=== PATIENT | female | born 1980 | race African-American/Black ===

== ENCOUNTER → 2020-08-24 | Outpatient (CLI) | payer MEDICAID | END | disposition home or self-care (01) | LOC: LAB 13:57 | PROVIDERS: ATTEND Obstetrics & Gynecology | DX: Z01.812 Encounter for preprocedural laboratory examination (principal); Z20.828 Contact with and (suspected) exposure to other viral communicable diseases | CPT/HCPCS: C9803; U0003 ==

== ENCOUNTER → 2020-08-27 | Day surgery (SDC) | payer MEDICAID ==
[~2020-08-27] VITALS: Ht 170.2 cm; Wt 88.5 kg
[~2020-08-27] MED LIST: LACTATED RINGERS 1,000 ML IV SCH; ONDA4TAB5 PO; OXYC-105 PO
[2020-08-27 10:42] LABS: CLARITY URINE CLEAR (CLEAR); COLOR URINE YELLOW (YELLOW); KETONES URINE 2+ (NEGATIVE); LEUKOCYTE ESTERASE URINE NEGATIVE (NEGATIVE); NITRITE URINE NEGATIVE (NEGATIVE); OCCULT BLOOD URINE TRACE (NEGATIVE); PROTEIN URINE NEGATIVE (NEGATIVE); SPECIFIC GRAVITY URINE 1.047 (1.005-1.030); UROBILINOGEN URINE 0.2 E.U./dL (0.2-1.0)
[2020-08-27 10:48] LABS: UCG SCREEN NEGATIVE
[2020-08-27 11:06] LABS: BASOPHILS % 1.4 % (0.0-2.0); EOSINOPHILS % 0.6 % (0.0-5.0); HEMATOCRIT. 37.6 % (36.0-48.0); HEMOGLOBIN. 12.6 g/dL (12.0-16.0); LYMPHOCYTES % 18.5 % (20.0-50.0); MEAN CORPUSCULAR HEMOGLOBIN 26.7 pg (28.0-32.0); MEAN CORPUSCULAR VOLUME 80.1 fL (81.0-99.0); MEAN PLATELET VOLUME 8.7 fl (7.4-10.4); MONOCYTES % 7.4 % (2.0-8.0); NEUTROPHILS % 72.1 % (40.0-76.0); PLATELET 418 x1000/uL (130-400); RED CELL DISTRIBUTION WIDTH 14.3 % (11.6-14.6)
[2020-08-27 11:11] LABS: CHLORIDE 99 mEq/L (98-107)
[2020-08-27 11:15] LABS: PARTIAL THROMBOPLASTIN TIME 27.4 sec (23.4-31.0); PROTHROMBIN TIME 10.6 sec (9.6-11.0)
== END | disposition home or self-care (01) ==
LOC: OR 09:51
PROVIDERS: ATTEND Obstetrics & Gynecology
DX: N92.6 Irregular menstruation, unspecified (principal); Z53.8 Procedure and treatment not carried out for other reasons; Z88.0 Allergy status to penicillin; Z91.013 Allergy to seafood; Z79.899 Other long term (current) drug therapy; Z98.890 Other specified postprocedural states
CPT/HCPCS: 36415; 80048; 81003; 81025; 82962; 85025; 86850; 86900

== ENCOUNTER → 2020-09-11 | Outpatient (CLI) | payer MEDICAID ==
[~2020-09-11] MED LIST changes: +DIPH25CA83 PO; +GLIP10TA10 PO; +INSU100I24 SQ; -LACTATED RINGERS 1,000 ML IV SCH; +MEDR10TA PO; +METF100092 PO
== END | disposition home or self-care (01) ==
LOC: LAB 12:51
PROVIDERS: ATTEND Obstetrics & Gynecology
DX: Z01.812 Encounter for preprocedural laboratory examination (principal); Z20.828 Contact with and (suspected) exposure to other viral communicable diseases
CPT/HCPCS: C9803; U0003

== ENCOUNTER 2020-09-14 06:03 | Day surgery (SDC) | payer MEDICAID ==
[~2020-09-14] VITALS: Ht 170.2 cm; Wt 88.5 kg
[2020-09-14 06:57] LABS: UCG SCREEN NEGATIVE
[2020-09-14] MEDS ORDERED: BUPIVACAINE HCL/PF 0.5% (5MG/ML) 10ML ONE (07:05)
[2020-09-14] MEDS ORDERED: SKIN ADHESIVE 0.7 GM EA TOP ONE (07:05)
[2020-09-14] MEDS ORDERED: VASOPRESSIN 20 UNIT/ML 1ML ONE (07:05)
[2020-09-14] MEDS ORDERED: CEFAZOLIN SODIUM 1000MG/VIAL ONE (08:21)
[2020-09-14] MEDS ORDERED: GLYCOPYRROLATE 0.2 MG/ML 2ML VIAL ONE (08:21)
[2020-09-14] MEDS ORDERED: SODIUM CHLORIDE 0.9% 10ML VIAL ONE (08:21)
[2020-09-14] MEDS ORDERED: NEOSTIGMINE METHYLSULFATE 1MG/ML 10 ML VIAL ONE (08:21)
[2020-09-14] MEDS ORDERED: ROCURONIUM BROMIDE 10MG/ML VIAL 5ML IV ONE (08:21)
[2020-09-14] MEDS ORDERED: PROPOFOL 200MG/20ML VIAL IV ONE (08:21)
[2020-09-14] MEDS ORDERED: FENTANYL CITRATE/PF 50MCG/ML 2ML VIAL ONE ×2 (08:21→08:54)
[2020-09-14] MEDS ORDERED: MIDAZOLAM HCL 2 MG/2 ML VIAL ONE (08:21)
[2020-09-14] MEDS ORDERED: SUCCINYLCHOLINE CHLORIDE 200MG/10ML IV ONE (08:22)
[2020-09-14] MEDS ORDERED: ONDANSETRON HCL 4MG/2ML INJ ONE (08:22)
[2020-09-14] MEDS ORDERED: DEXAMETHASONE 4MG/ML 1ML VIAL ONE (08:22)
[2020-09-14] MEDS ORDERED: METOCLOPRAMIDE HCL 10MG/2ML VIAL ONE (08:22)
[2020-09-14] MEDS ORDERED: HYDROMORPHONE HCL/PF 2MG/ML CPJ IV PRN (10:45)
[2020-09-14] MEDS ORDERED: ONDANSETRON HCL 4MG/2ML INJ IV PRN (10:45)
[2020-09-14] MEDS ORDERED: MEPERIDINE HCL/PF 25MG/ML CPJ IV PRN ×2 (10:45)
[2020-09-14] MEDS ORDERED: MORPHINE SULFATE 2 MG/ML CPJ (NOT FOR IM USE) IV PRN (10:45)
[2020-09-14] MEDS ORDERED: SODIUM CHLORIDE 0.9% 1,000 ML IV ONE (10:45)
== END 2020-09-14 13:25 | disposition home or self-care (01) ==
LOC: OR 06:03
PROVIDERS: ATTEND Obstetrics & Gynecology
DX: R10.2 Pelvic and perineal pain (principal); N95.0 Postmenopausal bleeding; N73.6 Female pelvic peritoneal adhesions (postinfective); N83.201 Unspecified ovarian cyst, right side; G89.29 Other chronic pain; E11.9 Type 2 diabetes mellitus without complications; F41.9 Anxiety disorder, unspecified; Z79.899 Other long term (current) drug therapy; Z79.84 Long term (current) use of oral hypoglycemic drugs; Z79.82 Long term (current) use of aspirin; Z98.890 Other specified postprocedural states; Z88.0 Allergy status to penicillin; Z91.013 Allergy to seafood
CPT/HCPCS: 71045; 81025; 82962; J0330; J0690; J1100; J2250; J2405; J2704; J2710; J2765; J3010; J3490

== ENCOUNTER 2021-05-11 11:38 | Inpatient (IN) | payer MEDICAID, OTHER ==
[~2021-05-11] VITALS: Ht 170.2 cm; Wt 93.4 kg
[2021-05-11] MEDS ORDERED: ONDANSETRON HCL 4MG/2ML INJ IV STA (11:56)
[2021-05-11] MEDS ORDERED: MORPHINE SULFATE 4 MG/ML CPJ (NOT FOR IM USE) IV STA (11:56)
[2021-05-11] MEDS ORDERED: SODIUM CHLORIDE 0.9% 1,000 ML IV ONE (12:00)
[2021-05-11 12:24] LABS: CHLORIDE 104 mEq/L (98-107)
[2021-05-11 12:48] LABS: BASOPHILS % 0.3 % (0.0-2.0); EOSINOPHILS % 0.1 % (0.0-5.0); HEMATOCRIT. 36.8 % (36.0-48.0); HEMOGLOBIN. 12.4 g/dL (12.0-16.0); MEAN CORPUSCULAR HEMOGLOBIN 26.3 pg (28.0-32.0); MEAN CORPUSCULAR VOLUME 78.1 fL (81.0-99.0); MEAN PLATELET VOLUME 7.5 fl (7.4-10.4); MONOCYTES % 4.4 % (2.0-8.0); NEUTROPHILS % 85.2 % (40.0-76.0); PLATELET 396 x1000/uL (130-400); RED BLOOD CELL COUNT 4.72 mill/uL (4.2-5.4); RED CELL DISTRIBUTION WIDTH 14.5 % (11.6-14.6)
[2021-05-11 13:20] LABS: HCG SCREEN NEGATIVE
[2021-05-11] MEDS ORDERED: ONDANSETRON HCL 4MG/2ML INJ IV ONE (13:45)
[2021-05-11 13:57] LABS: CLARITY URINE CLEAR (CLEAR); COLOR URINE YELLOW (YELLOW); KETONES URINE 4+ (NEGATIVE); LEUKOCYTE ESTERASE URINE NEGATIVE (NEGATIVE); NITRITE URINE NEGATIVE (NEGATIVE); OCCULT BLOOD URINE NEGATIVE (NEGATIVE); PH URINE 7.5 (4.5-8.0); PROTEIN URINE NEGATIVE (NEGATIVE); UROBILINOGEN URINE 0.2 E.U./dL (0.2-1.0)
[2021-05-11] MEDS ORDERED: MORPHINE SULFATE 4 MG/ML CPJ (NOT FOR IM USE) IV ONE (14:00)
[2021-05-11] MEDS ORDERED: ONDANSETRON HCL 4MG/2ML INJ IV PRN (17:45)
[2021-05-11] MEDS ORDERED: ACETAMINOPHEN 325MG TABLET PO PRN ×2 (17:45)
[2021-05-11] MEDS ORDERED: CLONIDINE 0.1MG TABLET PO PRN (17:45)
[2021-05-11] MEDS ORDERED: DOCUSATE SODIUM 100MG CAPSULE PO PRN (17:45)
[2021-05-11] MEDS ORDERED: IPRATROPIUM/ALBUTEROL 0.5-3(2.5)MG/3ML NEB HHN PRN (17:45)
[2021-05-11] MEDS: MORPHINE SULFATE 2 MG/ML CPJ (NOT FOR IM USE) IV PRN (18:43)
[2021-05-11 19:50] VITALS: BP 141/92
[2021-05-11 20:00] VITALS: BP 141/92
[2021-05-11] MEDS ORDERED: DEXTROSE 50% WATER 50ML SYRINGE IV PRN (20:00)
[2021-05-11] MEDS: BLOOD SUGAR DIAGNOSTIC STRIP TEST SCH (21:09)
[2021-05-11] MEDS: INSULIN LISPRO 100 UNITS/ML SUBCUT SCH (21:18)
[2021-05-11] MEDS: LORAZEPAM 0.5MG TABLET PO PRN (22:09)
[2021-05-11] MEDS: HYDROCODONE/ACETAMINOPHEN 5/325MG TABLET PO PRN (22:10)
[2021-05-11] MEDS: ONDANSETRON HCL 4MG/2ML INJ IV PRN (23:49)
[2021-05-12] VITALS: BP 121/75
[2021-05-12] MEDS: MORPHINE SULFATE 2 MG/ML CPJ (NOT FOR IM USE) IV PRN ×2 (02:36→17:08)
[2021-05-12 04:00] VITALS: BP 140/98
[2021-05-12] MEDS: BLOOD SUGAR DIAGNOSTIC STRIP TEST SCH ×4 (06:40→21:18)
[2021-05-12] MEDS: INSULIN LISPRO 100 UNITS/ML SUBCUT SCH ×4 (06:41→21:00)
[2021-05-12 07:04] LABS: BASOPHILS % 0.3 % (0.0-2.0); HEMATOCRIT. 37.7 % (36.0-48.0); HEMOGLOBIN. 12.5 g/dL (12.0-16.0); LYMPHOCYTES % 10.1 % (20.0-50.0); MEAN CORPUSCULAR VOLUME 78.4 fL (81.0-99.0); MONOCYTES % 6.8 % (2.0-8.0); NEUTROPHILS % 82.8 % (40.0-76.0); RED CELL DISTRIBUTION WIDTH 14.7 % (11.6-14.6)
[2021-05-12 07:37] LABS: CHLORIDE 102 mEq/L (98-107)
[2021-05-12 07:44] LABS: LDL CHOLESTEROL 119 mg/dL (5-100)
[2021-05-12 07:46] LABS: HDL CHOLESTEROL 114 mg/dL (40-59)
[2021-05-12 08:00] VITALS: BP 154/83
[2021-05-12 08:23] LABS: *AMPHETAMINES SCREEN URINE NEGATIVE (NEGATIVE); *BARBITURATES SCREEN URINE NEGATIVE (NEGATIVE); *BENZODIAZEPINES SCREEN URINE NEGATIVE (NEGATIVE); *COCAINE SCREEN URINE NEGATIVE (NEGATIVE); METHADONE URINE SCREEN NEGATIVE (NEGATIVE)
[2021-05-12 08:24] LABS: CANNABINOID URINE SCREEN NEGATIVE (NEGATIVE); PHENCYCLIDINE URINE SCREEN NEGATIVE (NEGATIVE)
[2021-05-12 08:33] LABS: OPIATES URINE SCREEN PRESUMTIVE POSITIVE (NEGATIVE)
[2021-05-12] MEDS: HYDROCODONE/ACETAMINOPHEN 5/325MG TABLET PO PRN ×2 (09:16→20:09)
[2021-05-12] MEDS: ONDANSETRON HCL 4MG/2ML INJ IV PRN ×3 (09:17→21:30)
[2021-05-12 09:35] LABS: PLATELET ESTIMATE NORMAL
[2021-05-12 12:00] VITALS: BP 150/80
[2021-05-12 16:00] VITALS: BP 145/80
[2021-05-12] MEDS: INSULIN GLARGINE UD 100 UNITS/ML SYR SUBCUT SCH (17:06)
[2021-05-12 20:00] VITALS: BP 139/88
[2021-05-12] MEDS: ATORVASTATIN CALCIUM 20MG TABLET PO SCH (21:30)
[2021-05-13] VITALS: BP 143/71
[2021-05-13] MEDS: ONDANSETRON HCL 4MG/2ML INJ IV PRN ×4 (03:45→22:56)
[2021-05-13] MEDS: HYDROCODONE/ACETAMINOPHEN 5/325MG TABLET PO PRN ×2 (03:45→16:06)
[2021-05-13] MEDS: LORAZEPAM 0.5MG TABLET PO PRN ×2 (03:54→22:56)
[2021-05-13 04:00] VITALS: BP 127/82
[2021-05-13] MEDS: INSULIN LISPRO 100 UNITS/ML SUBCUT SCH ×3 (06:38→21:00)
[2021-05-13] MEDS: BLOOD SUGAR DIAGNOSTIC STRIP TEST SCH ×3 (06:38→21:24)
[2021-05-13 08:00] VITALS: BP 124/73
[2021-05-13] MEDS: MORPHINE SULFATE 2 MG/ML CPJ (NOT FOR IM USE) IV PRN ×2 (08:53→23:08)
[2021-05-13] MEDS: INSULIN GLARGINE UD 100 UNITS/ML SYR SUBCUT SCH (10:51)
[2021-05-13 12:00] VITALS: BP 133/82
[2021-05-13 16:00] VITALS: BP_SYST 123; BP_SYST 127; BP_DIAS 59; BP_DIAS 65
[2021-05-13] MEDS: METOCLOPRAMIDE HCL 10MG/2ML VIAL IV SCH (19:05)
[2021-05-13 20:00] VITALS: BP 150/90
[2021-05-13] MEDS: ATORVASTATIN CALCIUM 20MG TABLET PO SCH (22:47)
[2021-05-14] VITALS: BP 142/84
[2021-05-14] MEDS: METOCLOPRAMIDE HCL 10MG/2ML VIAL IV SCH ×4 (01:35→17:40)
[2021-05-14 04:00] VITALS: BP 141/78
[2021-05-14] MEDS: BLOOD SUGAR DIAGNOSTIC STRIP TEST SCH ×4 (06:33→20:39)
[2021-05-14] MEDS: INSULIN LISPRO 100 UNITS/ML SUBCUT SCH ×4 (06:41→20:41)
[2021-05-14 08:29] VITALS: BP 135/77
[2021-05-14] MEDS: ONDANSETRON HCL 4MG/2ML INJ IV PRN ×3 (09:58→20:27)
[2021-05-14] MEDS: INSULIN GLARGINE UD 100 UNITS/ML SYR SUBCUT SCH (10:01)
[2021-05-14] MEDS: MORPHINE SULFATE 2 MG/ML CPJ (NOT FOR IM USE) IV PRN (12:22)
[2021-05-14] MEDS: HYDROCODONE/ACETAMINOPHEN 5/325MG TABLET PO PRN ×2 (15:06→20:27)
[2021-05-14 17:05] VITALS: BP 93/62
[2021-05-14 20:00] VITALS: BP 132/79
[2021-05-14] MEDS: ATORVASTATIN CALCIUM 20MG TABLET PO SCH (20:41)
[2021-05-14] MEDS: LORAZEPAM 0.5MG TABLET PO PRN (22:39)
[2021-05-15] VITALS: BP 129/76
[2021-05-15] MEDS: METOCLOPRAMIDE HCL 10MG/2ML VIAL IV SCH ×4 (00:58→17:52)
[2021-05-15] MEDS: ONDANSETRON HCL 4MG/2ML INJ IV PRN ×3 (03:08→21:10)
[2021-05-15] MEDS: MORPHINE SULFATE 2 MG/ML CPJ (NOT FOR IM USE) IV PRN ×2 (03:09→15:20)
[2021-05-15 04:00] VITALS: BP 126/71
[2021-05-15] MEDS: BLOOD SUGAR DIAGNOSTIC STRIP TEST SCH ×4 (06:10→21:00)
[2021-05-15] MEDS: INSULIN LISPRO 100 UNITS/ML SUBCUT SCH ×4 (06:11→22:26)
[2021-05-15 08:17] LABS: BASOPHILS % 0.7 % (0.0-2.0); EOSINOPHILS % 0.2 % (0.0-5.0); HEMATOCRIT. 39.6 % (36.0-48.0); HEMOGLOBIN. 13.2 g/dL (12.0-16.0); LYMPHOCYTES % 16.2 % (20.0-50.0); MEAN CORPUSCULAR VOLUME 78.2 fL (81.0-99.0); MEAN PLATELET VOLUME 7.8 fl (7.4-10.4); MONOCYTES % 8.3 % (2.0-8.0); NEUTROPHILS % 74.6 % (40.0-76.0); PLATELET 426 x1000/uL (130-400); RED BLOOD CELL COUNT 5.06 mill/uL (4.2-5.4); RED CELL DISTRIBUTION WIDTH 14.3 % (11.6-14.6)
[2021-05-15 08:22] LABS: CHLORIDE 100 mEq/L (98-107)
[2021-05-15] MEDS: HYDROCODONE/ACETAMINOPHEN 5/325MG TABLET PO PRN (09:50)
[2021-05-15] MEDS: INSULIN GLARGINE UD 100 UNITS/ML SYR SUBCUT SCH ×2 (09:52→10:00)
[2021-05-15 12:00] VITALS: BP 136/78
[2021-05-15] MEDS ORDERED: POTASSIUM CHLORIDE 20MEQ TABLET SR PO NR (12:00)
[2021-05-15 16:00] VITALS: BP 105/73
[2021-05-15 20:00] VITALS: BP 111/69
[2021-05-15] MEDS: ATORVASTATIN CALCIUM 20MG TABLET PO SCH (21:10)
[2021-05-15] MEDS: HYDROCODONE/ACETAMINOPHEN 10/325MG TABLET PO PRN (21:11)
[2021-05-16] VITALS (7 sets, daily range): BP systolic 87–109; BP diastolic 48–77
[2021-05-16] MEDS: LORAZEPAM 0.5MG TABLET PO PRN (00:01)
[2021-05-16] MEDS: MORPHINE SULFATE 2 MG/ML CPJ (NOT FOR IM USE) IV PRN ×2 (03:37→16:24)
[2021-05-16] MEDS: METOCLOPRAMIDE HCL 10MG/2ML VIAL IV SCH ×5 (06:44→23:20)
[2021-05-16] MEDS: BLOOD SUGAR DIAGNOSTIC STRIP TEST SCH ×4 (07:20→21:13)
[2021-05-16] MEDS: ONDANSETRON HCL 4MG/2ML INJ IV PRN (08:49)
[2021-05-16] MEDS: INSULIN LISPRO 100 UNITS/ML SUBCUT SCH ×4 (08:49→21:26)
[2021-05-16] MEDS: INSULIN GLARGINE UD 100 UNITS/ML SYR SUBCUT SCH (10:00)
[2021-05-16] MEDS: HYDROCODONE/ACETAMINOPHEN 10/325MG TABLET PO PRN (12:32)
[2021-05-16] MEDS: ATORVASTATIN CALCIUM 20MG TABLET PO SCH (21:25)
[2021-05-17] VITALS: BP 95/57
[2021-05-17] MEDS: ONDANSETRON HCL 4MG/2ML INJ IV PRN ×3 (03:08→17:42)
[2021-05-17] MEDS: HYDROCODONE/ACETAMINOPHEN 10/325MG TABLET PO PRN ×4 (03:09→23:43)
[2021-05-17 04:00] VITALS: BP 103/61
[2021-05-17] MEDS: MORPHINE SULFATE 2 MG/ML CPJ (NOT FOR IM USE) IV PRN ×2 (04:30→08:55)
[2021-05-17] MEDS: METOCLOPRAMIDE HCL 10MG/2ML VIAL IV SCH ×4 (05:54→23:17)
[2021-05-17] MEDS: BLOOD SUGAR DIAGNOSTIC STRIP TEST SCH ×4 (06:44→20:55)
[2021-05-17] MEDS: INSULIN LISPRO 100 UNITS/ML SUBCUT SCH ×4 (06:46→21:00)
[2021-05-17 07:15] LABS: CHLORIDE 97 mEq/L (98-107)
[2021-05-17 07:22] LABS: BASOPHILS % 0.4 % (0.0-2.0); EOSINOPHILS % 1.6 % (0.0-5.0); HEMATOCRIT. 34.9 % (36.0-48.0); HEMOGLOBIN. 11.5 g/dL (12.0-16.0); MEAN CORPUSCULAR HEMOGLOBIN 26.1 pg (28.0-32.0); MEAN CORPUSCULAR VOLUME 79.1 fL (81.0-99.0); MEAN PLATELET VOLUME 8.4 fl (7.4-10.4); MONOCYTES % 9.3 % (2.0-8.0); NEUTROPHILS % 57.7 % (40.0-76.0); PLATELET 362 x1000/uL (130-400); RED BLOOD CELL COUNT 4.42 mill/uL (4.2-5.4); RED CELL DISTRIBUTION WIDTH 14.5 % (11.6-14.6)
[2021-05-17 07:23] LABS: PHOSPHORUS 3.8 mg/dL (2.5-4.9)
[2021-05-17 08:00] VITALS: BP 105/50
[2021-05-17] MEDS: INSULIN GLARGINE UD 100 UNITS/ML SYR SUBCUT SCH (10:06)
[2021-05-17 12:00] VITALS: BP 100/53
[2021-05-17] MEDS ORDERED: HYDROCODONE/ACETAMINOPHEN 5/325MG TABLET PO PRN (14:45)
[2021-05-17 16:00] VITALS: BP 118/69
[2021-05-17] MEDS ORDERED: METF-414 MT (18:30)
[2021-05-17] MEDS ORDERED: ATOR20TA PO (18:30)
[2021-05-17] MEDS ORDERED: METO10TA3 MT (18:30)
[2021-05-17] MEDS ORDERED: ASPIRIN/ACETAMINOPHEN/CAFFEINE 250/250/65MG TABLET PO PRN (18:30)
[2021-05-17 20:00] VITALS: BP 117/58
[2021-05-17] MEDS: ATORVASTATIN CALCIUM 20MG TABLET PO SCH ×2 (21:02→21:09)
[2021-05-18] VITALS: BP 105/48
[2021-05-18] MEDS ORDERED: LORAZEPAM 0.5MG TABLET PO PRN (00:15)
[2021-05-18 06:00] VITALS: BP 113/57
[2021-05-18] MEDS: METOCLOPRAMIDE HCL 10MG/2ML VIAL IV SCH ×3 (06:04→18:02)
[2021-05-18] MEDS: INSULIN LISPRO 100 UNITS/ML SUBCUT SCH ×2 (06:31→12:53)
[2021-05-18] MEDS: BLOOD SUGAR DIAGNOSTIC STRIP TEST SCH ×2 (06:31→12:40)
[2021-05-18 07:54] VITALS: BP 106/67
[2021-05-18] MEDS: ONDANSETRON HCL 4MG/2ML INJ IV PRN (10:38)
[2021-05-18] MEDS: INSULIN GLARGINE UD 100 UNITS/ML SYR SUBCUT SCH (10:40)
[2021-05-18 12:00] VITALS: BP 113/69
[2021-05-18] MEDS: HYDROCODONE/ACETAMINOPHEN 10/325MG TABLET PO PRN (13:13)
[2021-05-18 17:32] VITALS: BP 117/71
== END 2021-05-18 18:20 | disposition home or self-care (01) | DRG 48 ==
LOC: ER 11:44 → 8WST 15:47 → ENRESERV 16:25
PROVIDERS: ADMIT Internal Medicine; ATTEND Internal Medicine
DX: E11.43 Type 2 diabetes mellitus with diabetic autonomic (poly)neuropathy (principal); E11.65 Type 2 diabetes mellitus with hyperglycemia; E87.1 Hypo-osmolality and hyponatremia; K31.84 Gastroparesis; E78.5 Hyperlipidemia, unspecified; E03.9 Hypothyroidism, unspecified; R82.4 Acetonuria; R81 Glycosuria; Z79.4 Long term (current) use of insulin; Z79.899 Other long term (current) drug therapy; Z88.0 Allergy status to penicillin
CPT/HCPCS: 36415; 71045; 74176; 80048; 80053; 80061; 80305; 81003; 82962; 83036; 83605; 83735; 83880; 84100; 84145; 84439; 84443; 84481; 84484; 84703; 85025; 85379; 93005; 99285; C1893; J1815; J2270; J2405; J2765; J7030